=== PATIENT | male | born 1965 | race African-American/Black ===

== ENCOUNTER 2021-01-04 09:36 | Emergency (ER) | payer OTHER ==
[~2021-01-04] VITALS: Ht 185.4 cm; Wt 109.1 kg
[2021-01-04] MEDS ORDERED: CASIRIVIMAB/IMDEVIMAB inject. 10 ML in normal saline 100ml IV soln 100 ML IV ONE (10:40)
[2021-01-04 10:51] LABS: ALBUMIN 3.9 G/DL (3.4-5.0); ANION GAP 10 (8-16); BLOOD UREA NITROGEN 21 MG/DL (7-18); BUN/CREATININE RATIO 11.8 (5.4-32.0); CALCIUM 8.7 MG/DL (8.5-10.1); CHLORIDE 94 MMOL/L (99-107); CREATININE 1.78 MG/DL (0.60-1.10); GLUCOSE 115 MG/DL (70-104); POTASSIUM 3.3 MMOL/L (3.5-5.1); SODIUM 134 MMOL/L (135-145); TOTAL CARBON DIOXIDE 29.9 MMOL/L (24-32); eGFR 40 ML/MIN
[2021-01-04 10:53] LABS: BASOPHILS % (AUTO) 0.3 % (0-1); EOSINOPHILS % (AUTO) 0 % (0-6); HEMATOCRIT 48.2 % (42.0-52.0); HEMOGLOBIN 16.3 g/dl (14.0-17.9); LYMPHOCYTES % (AUTO) 15.3 % (21-51); MEAN CORPUSCULAR HEMOGLOBIN 30.5 PG (27.0-31.0); MEAN CORPUSCULAR HGB CONC 33.8 g/dL (33.0-36.5); MEAN CORPUSCULAR VOLUME 90.4 FL (78-98); MEAN PLATELET VOLUME 8.9 FL (7.4-10.4); MONOCYTES # (AUTO) 0.5 X10'3 (0-0.9); MONOCYTES % (AUTO) 8.5 % (2-12); NEUTROPHILS # (AUTO) 4.8 X10'3 (1.8-7.7); NEUTROPHILS % (AUTO) 75.9 % (42-75); PLATELET COUNT 170 X10'3 (140-440); RED BLOOD COUNT 5.33 X10'6 (4.70-6.10); RED CELL DISTRIBUTION WIDTH 13.3 % (11.5-14.5); WHITE BLOOD COUNT 6.4 X10'3 (4.5-11.0)
[2021-01-04] MEDS ORDERED: BAMLANIVIMAB 700MG, ETESEVIMAB 1,400MG in NS 100mL (Total vol 160ml) IV ONE (10:55)
[2021-01-04] MEDS ORDERED: dexamethasone sod phosphate 10mg/ml inj PO STA (11:43)
[2021-01-04] MEDS ORDERED: ALBU8HFA PO (11:44)
[2021-01-04 13:46] VITALS: BP 137/77
== END 2021-01-04 14:49 | disposition home or self-care (01) ==
LOC: ER 09:36 → EDSEX 09:36 → ER 14:49
DX: U07.1 COVID-19 (principal); R06.02 Shortness of breath; R51.9 Headache, unspecified; R05.9 Cough, unspecified; Z79.899 Other long term (current) drug therapy
CPT/HCPCS: 36415; 71045; 80048; 85025; 87635; 99284; C9803; J1100; M0245; Q0245; Q0239